=== PATIENT | male | born 1940 | race Caucasian/White ===

== ENCOUNTER 2018-10-03 16:00 | Inpatient (IN) | payer MEDICARE, OTHER ==
[2018-10-03] VITALS (17 sets, daily range): BP systolic 100–168; BP diastolic 52–86
[~2018-10-03] VITALS: Ht 193 cm; Wt 81.2 kg
--- NOTE | 2018-10-03 15:41 | NUR ---
[facility] BAIL AGENT NOTES RECEIVED PT FROM GPS,OBTUNDED.RESPONSIVE ONLY TO TACTILE STIMULI.BOTH EYES CLOSED ALL THE TIME.RESPIRATIONS NON LABORED IN ROOM AIR.O2 SAT 93%.WITH MOUTH OPEN.OCCASIONAL REPRODUCTIVE COUGH WITH CONGESTION NOTED.THE CHARGE NURSE TOLD ME TO TRANSFER THE PT TO [address] [place] [id number].QUESTIONED THE CHARGE NURSE FOR THE REASON OF THE TRANSFER,PER CHARGE NURSE WAS TOLD BY THE SLOT MACHINE KEY PERSON TO TRANSFER THE PT TO [facility] SOON POSSIBLE FOR CONTINUITY OF CARE.V/S BP 102/80 HR 60 RR 20 T99 O2 SAT 93% IN ROOM AIR.
--- NOTE | 2018-10-03 15:55 | NUR ---
MOVED PT TO [facility] 306-1 VIA BED.
[~2018-10-03 16:00] MED LIST: FINA5TAB11 PO; QUET25TA PO; VALS160T2 PO
--- NOTE | 2018-10-03 16:00 | NUR ---
PT TRANSFERRED FROM [facility] TO [facility] , FROM [facility] TO 3W -TELE. RECEIVED REPORT FROM DUANE Puente. PT RESPONDS TO DEEP PAIN,RIGID. PT ON O2 VIA NC 2L SATURATING 97%. BP 108/54. PT PLACED ON MONITOR SR HR 54-56. INSERTED IV LINE ON LFA #22. FAMILY AT THE BEDSIDE. BELONGINGS LIST REVIEWED. PT DENTURES (UPPER/ LOWER) AND GLASSES RETURNED TO FAMILY. WILL F/U WITH MARLYN N.P. ORDERS.
--- NOTE | 2018-10-03 16:00 | NUR ---
PLACED PT COMFORTABLY IN BED WITH O2 AT 2L/MIN VIA N/C.NO SOB NOTED.PT MOVES HIS LEFT ARM OCCASIONALLY BUT HIS EYES REMAINS CLOSED.PT MADE ATTEMPTS OF PULLING OUT HIS O2 CANNULA SEVERAL TIMES INSPITE OF EXPLAINING THE IMPORTANCE OF HAVING OXYGEN ON.SET UP SUCTION MACHINE AT BEDSIDE.REPORT GIVEN TO 3 CONSTANTINE RN.
--- NOTE | 2018-10-03 16:20 | NUR ---
PT'S DAUGHTER,WASHINGTON RIVERA CALLED.SPOKE TO WASHINGTON AND UPDATED HER ON PT'S CONDITION.
[2018-10-03] MEDS ORDERED: ONDANSETRON HCL/PF 4 MG/2 ML VIAL IVP PRN (17:00)
[2018-10-03] MEDS ORDERED: Z GUARD REMEDY 2 OZ OINT TP PRN (17:00)
[2018-10-03] MEDS ORDERED: HYDROCODONE/APAP 5/325MG 1 EACH TABLET PO PRN (17:00)
[2018-10-03] MEDS ORDERED: IV NS 0.9% 1,000 ML IV PRN (17:00)
[2018-10-03 17:27] LABS: BASOPHILS % (AUTO) 0.1 % (0.0-2.0); HEMATOCRIT 37 % (39-51); HEMOGLOBIN 12.6 g/dL (13.5-17.5); LYMPHOCYTES # (AUTO) 0.6 /CMM (0.8-4.8); LYMPHOCYTES % (AUTO) 5.8 % (20.0-44.0); MEAN CORPUSCULAR HGB CONC 34 g/dl (31.0-36.0); MEAN CORPUSCULAR VOLUME 90 fL (80-96); MONOCYTES # (AUTO) 0.9 /CMM (0.1-1.30); MONOCYTES % (AUTO) 8.7 % (2.0-12.0); NEUTROPHILS # (AUTO) 8.5 /CMM (1.8-8.9); NEUTROPHILS % (AUTO) 85.4 % (43.0-81.0); PLATELET COUNT (AUTO) 136 /CMM (150-450); RED BLOOD CELL COUNT(AUTO) 4.07 MIL/uL (4.5-6.0)
[2018-10-03 17:39] LABS: CALCIUM, SERUM 8.7 mg/dL (8.5-10.1); CARBON DIOXIDE 24 mmol/L (21-32); CHLORIDE 106 mmol/L (98-107); CREATININE 0.9 mg/dL (0.6-1.3); GLUCOSE 122 mg/dL (74-106); POTASSIUM 3.8 mmol/L (3.5-5.1); SODIUM SERUM 141 mmol/L (136-145); UREA NITROGEN, BLOOD 22 mg/dL (7-18)
[2018-10-03 17:52] LABS: ALANINE AMINOTRANSFERASE 46 U/L (12-78); ALBUMIN 3.2 g/dL (3.4-5.0); ALKALINE PHOSPHATASE 71 U/L (46-116); ASPARTATE AMINOTRANSFERASE 99 U/L (15-37); B-TYPE NATRIURETIC PEPTIDE 1472 PG/ML (0-125); MAGNESIUM 2.2 mg/dL (1.8-2.4); PHOSPHORUS 2.7 mg/dL (2.5-4.9); TOTAL PROTEIN, SERUM 6.4 g/dL (6.4-8.2)
--- NOTE | 2018-10-03 18:00 | NUR ---
RECEIVED A CALL FROM LAB . TROPONIN LEVEL IS [phone]. MADE AWARE Sarina CLINE
--- NOTE | 2018-10-03 18:45 | NUR ---
PT RETURNED FROM CT HEAD. MARLYN Branch AT THE BED SIDE. Addendum: 10/03/18 at 1954 by SIVAKUMAR ARGUETA RN MARLYN Lozano AWARE OF CT HEAD RESULTS
--- NOTE | 2018-10-03 18:50 | NUR ---
Marta CLINE MADE AWARE CARGO SERVICE SUPERVISOR AND NEUROLOGIST
[2018-10-03 18:58] LABS: ABG BASE EXCESS 1.5 mmol/L; ABG OXYGEN SATURATION 97.5 % (92.0-98.5); ABG PCO2 38.2 mmHg (35.0-45.0); ABG PH 7.442 (7.350-7.450); ABG PO2 111.7 mmHg (75.0-100.0); AaDO2 71.8 mmHg; COHb 0.3 % (0.5-1.5); MetHb 0.6 % (0.0-1.5); O2Hb 96.6 % (94.0-97.0); SITE, ABG Right Radial; VENT MODE, BG NC 3LPM
--- NOTE | 2018-10-03 19:05 | NUR ---
TRANSFERRED PT TO ICU DUE TO CT HEAD RESULT (HEMORRHAGIC STROKE ). REPORT GIVEN TO TAYLOR BOBO
--- NOTE | 2018-10-03 19:10 | NUR ---
ICU/UNSTACKER RECEIVED FROM MED/SURG NURSE. PT PLACED ON ICU MONITOR. DANIEL MARLYN HERE TO SEE PT. SEE NURSING FLOWSHEET FOR ASSESSMENT AND WOUND ASSESSMENT. PT WAS TURNED AND REPOSITIONED FOR COMFORT AND CARE. WILL CONTINUE TO MONITOR THIS PT.
--- NOTE | 2018-10-03 19:20 | NUR ---
ICU/SUPERVISOR FUSING ROOM DANIEL CLINE MADE AWARE OF THE HEAD CT WHICH SHOWS 290ML HEMATOMA ALONG WITH MIDBRAIN SHIFT. FAMILY CALLED IN TO TALK TO THEM ABOUT PLAN OF CARE.
[2018-10-03] MEDS: IV NS 0.9% 1,000 ML IV PRN (19:51)
[2018-10-03 19:55] LABS: CHOLESTEROL 164 mg/dL (<200); HDL CHOLESTEROL 43 mg/dL (40-60); LDL 113 mg/dL (0-99); THYROID STIMULATING HORMONE 1.523 uIU/mL (0.358-3.74); TRIGLYCERIDES 75 mg/dL (30-150)
[2018-10-03] MEDS ORDERED: CEFTRIAXONE 1 G in IV D5W 50 ML IV SCH (20:00)
--- NOTE | 2018-10-03 20:10 | NUR ---
ICU/TURBINE ASSEMBLER NEUROLOGIST CALLED TO TALK ABOUT HEAD CT RESULTS AND POTENTIAL PLAN OF CARE FOR THIS.
[2018-10-03] MEDS: METRONIDAZOLE 500MG/ NS 100ML 500 MG in PREMIX 1 EA IV SCH (20:30)
--- NOTE | 2018-10-03 20:40 | NUR ---
ICU/GANG RIDER PT WAS DEEP SUCTIONED, THICK YELLOW SECRETIONS WERE FOUND. PT TOLERATED THIS WELL, REMAINS ON 2 LITERS N/C. WILL CONTINUE TO MONITOR THIS PT.
--- NOTE | 2018-10-03 22:00 | NUR ---
ICU/ELECTROPHYSIOLOGY TECHNOLOGIST PT'S CAME TO THE DECISION TO MAKE PT A DNR/DNI. DNP PLACED IN THE COMPUTER.
--- NOTE | 2018-10-03 22:50 | NUR ---
ICU/MILLINERY TEACHER PT WAS DEEP SUCTIONED, THICK YELLOW SECRETIONS CONTINUE TO BE FOUND. PT TOLERATED THIS WELL, REMAINS ON 2 LITERS N/C. WILL CONTINUE TO MONITOR THIS PT.
[2018-10-04] VITALS (45 sets, daily range): BP systolic 101–170; BP diastolic 52–94
--- NOTE | 2018-10-04 01:20 | NUR ---
ICU/DIRECTOR OF EMAIL MARKETING PT'S FAMILY GONE HOME FOR THE EVENING.
--- NOTE | 2018-10-04 02:20 | NUR ---
ICU/LEAD COOK PT WAS DEEP SUCTIONED, THICK YELLOW SECRETIONS CONTINUE TO BE FOUND. PT TOLERATED THIS WELL, REMAINS ON 2 LITERS N/C. WILL CONTINUE TO MONITOR THIS PT.
--- NOTE | 2018-10-04 03:10 | NUR ---
ICU/OIL FIELD RIG BUILDER PT WAS GIVEN AM CARE ALONG WITH ORAL CARE. PT TOLERATED THIS WELL, REMAINS ON CURRENT OXYGEN SETTINGS, WITH SATURATION AT 98%. PT WAS TURNED AND REPOSITIONED FOR COMFORT AND CARE. NO ACUTE DISTRESS SEEN AT THIS TIME. PT APPEARS COMFORTABLE. WILL CONTINUE TO MONITOR THIS PT.
[2018-10-04] MEDS: METRONIDAZOLE 500MG/ NS 100ML 500 MG in PREMIX 1 EA IV SCH (03:47)
--- NOTE | 2018-10-04 04:55 | NUR ---
ICU/FELT PULLER AM LABS WERE DRAWN ALONG WITH CHEST XRAY, AWAIT FOR ANY ABNORMAL RESULTS.
[2018-10-04 05:06] LABS: CALCIUM, SERUM 8.2 mg/dL (8.5-10.1); CARBON DIOXIDE 23 mmol/L (21-32); CHLORIDE 106 mmol/L (98-107); CREATININE 0.9 mg/dL (0.6-1.3); GLUCOSE 115 mg/dL (74-106); PHOSPHORUS 2.7 mg/dL (2.5-4.9); POTASSIUM 3.7 mmol/L (3.5-5.1); SODIUM SERUM 141 mmol/L (136-145); UREA NITROGEN, BLOOD 24 mg/dL (7-18)
[2018-10-04 05:42] LABS: BASOPHILS % (AUTO) 0.1 % (0.0-2.0); HEMATOCRIT 38 % (39-51); HEMOGLOBIN 12.7 g/dL (13.5-17.5); LYMPHOCYTES # (AUTO) 0.7 /CMM (0.8-4.8); LYMPHOCYTES % (AUTO) 7.3 % (20.0-44.0); MEAN CORPUSCULAR HGB CONC 34 g/dl (31.0-36.0); MEAN CORPUSCULAR VOLUME 91 fL (80-96); MONOCYTES # (AUTO) 0.9 /CMM (0.1-1.30); MONOCYTES % (AUTO) 9.3 % (2.0-12.0); NEUTROPHILS # (AUTO) 7.7 /CMM (1.8-8.9); NEUTROPHILS % (AUTO) 83.3 % (43.0-81.0); PLATELET COUNT (AUTO) 138 /CMM (150-450); RED BLOOD CELL COUNT(AUTO) 4.14 MIL/uL (4.5-6.0); WHITE BLOOD COUNT (AUTO) 9.3 K/uL (4.3-11.0)
--- NOTE | 2018-10-04 07:12 | NUR ---
RN INITIAL NOTES: Rec'd pt on bed, not in any distress though noted productive cough unable to expectorate. On NC at 2lpm, sating 96%. On telemonitor SB 58bpm. Pt is responsive w/ painful stimulus. Has LFA G20, SL, flushing well, no s/sx of infection/infiltration, on NS x 75 cc/hr. Deep suctioning done, able to suctioned thick secretions via oropharyngeal. Provided comfort & safety measures. Bed kept low & in locked pos. Call light placed w/in reach. Will continue to monitor & attend pt needs.
--- NOTE | 2018-10-04 08:30 | NUR ---
RN was able to talk to the and agreeable w/ condom catheter. Pt is incontinent & noted redness on the sacral area.
--- NOTE | 2018-10-04 09:00 | NUR ---
Pt seen & examined by Dr. Ferguson. was able to talk w/ the .
[2018-10-04] MEDS: PANTOPRAZOLE 40 MG VIAL IV SCH (09:14)
[2018-10-04] MEDS: IV NS 0.9% 1,000 ML IV PRN (11:28)
--- NOTE | 2018-10-04 14:00 | NUR ---
Karuna requested if she can have pt's wallet & phone. RN got valuables from nursing office c/o Kandis. Wallet & flip phone returned to the at bedside. checked & no issues brought up.
--- NOTE | 2018-10-04 14:44 | NUR ---
Jero May NP may place DVT pumps.
--- NOTE | 2018-10-04 15:00 | NUR ---
Spoke w/ pt's Karuna at bedside re: DCP, stated that she wanted the pt to be transferred stacie to [facility] in [place] under DNR/DNI status & once there will discuss the option of Hospice care. Lalo REYNOLDS made aware.
--- NOTE | 2018-10-04 17:49 | NUR ---
Pt seen & examined by RODOLFO May.
--- NOTE | 2018-10-04 18:33 | NUR ---
RN CLOSING NOTES: No acute changes noted w/in shift. Pt tolerated NC at 2lpm, sating 96%. Remains SB/SR on telemonitor. Pt is responsive w/ painful stimulus, opens eyes occasionally. LFA G20, PL, kept patent & intact w/ no s/sx of infection/infiltration, on NS x 75 cc/hr. Kept well rested. Needs attended. Bed kept low & in locked pos. Call light placed w/in reach. Will endorse to PM RN for RADHA.
--- NOTE | 2018-10-04 20:35 | NUR ---
I RECEIVED A CALL FROM LUIS A PSYCH CHARGE NURSE, SHE SAID THAT DR LANDAVERDE SAID TO D/C [id number]
--- NOTE | 2018-10-04 22:00 | NUR ---
right forearm 20g iv started, good blood return
[2018-10-05] VITALS (47 sets, daily range): BP systolic 86–154; BP diastolic 39–97
[2018-10-05] MEDS: IV NS 0.9% 1,000 ML IV PRN (00:48)
--- NOTE | 2018-10-05 05:56 | NUR ---
HAND BINDER CUTTER - NOTES - Received pt in bed, not in any distress though noted productive cough unable to expectorate. On NC at 2lpm, sating 96%. On telemonitor SR. Pt is responsive w/ painful stimulus. Has LFA G20, SL, flushing well, no s/sx of infection/infiltration, on NS x 75 cc/hr. Provided comfort & safety measures. Bed kept low & in locked pos. Call light placed w/in reach. Will continue to monitor & attend pt needs.
--- NOTE | 2018-10-05 09:00 | NUR ---
restraints education provided to RENEWAL ORDER PER ROSALINDA CLINE DNP, MITTEN ON UPPER LEFT EXTREMITY
[2018-10-05 09:40] LABS: APPEARANCE,URINE TURBID (CLEAR); BILIRUBIN,URINE 1+ (NEGATIVE); BLOOD, URINE TRACE Ery/uL (NEGATIVE); KETONES,URINE 2+ (NEGATIVE); LEUKOCYTE ESTERASE ,URINE NEGATIVE (NEGATIVE); NITRITE, URINE NEGATIVE (NEGATIVE); PH,URINE 5.5 (5.0-8.0); PROTEIN,URINE NEGATIVE (NEGATIVE); UGLUCOSE NEGATIVE (NEGATIVE); UROBILINOGEN,URINE 0.2 EU/dL (0.2)
[2018-10-05] MEDS: PANTOPRAZOLE 40 MG VIAL IV SCH (09:52)
[2018-10-05 10:04] LABS: COLOR,URINE DARK YELLOW (YELLOW)
[2018-10-05 10:08] LABS: BACTERIA,URINE FEW /HPF (None Seen); RBC,URINE 0-2 /HPF (0-2); SQUAMOUS EPITHELIAL CELL,UR RARE /HPF (None Seen); WBC,URINE 0-2 /HPF (0-3)
--- NOTE | 2018-10-05 10:41 | NUR ---
Sw has spoken with case management regarding consult received for pt. CM will process hospice consult.
--- NOTE | 2018-10-05 12:01 | NUR ---
PER ROSALINDA CLINE DNP CHANGE IV FLUIDS TO D5 NS AT 75 ML/HOUR
[2018-10-05] MEDS: IV D5/ 0.9% NACL 1,000 ML IV PRN (12:52)
[2018-10-05] MEDS: LEVETIRACETAM (500MG) 500 MG in IV NS 0.9% 100 ML IV SCH ×2 (14:17→20:20)
--- NOTE | 2018-10-05 17:57 | NUR ---
PER ROSALINDA CLINE DNP, FLAGYL 500 MG Q8 HOURS IV ROCEPHIN 1 GRAM Q 24 HOURS
[2018-10-05] MEDS: ACETAMINOPHEN 650 MG/SUPP.RECT RC PRN (19:06)
[2018-10-05] MEDS: CEFTRIAXONE 1 G in IV D5W 50 ML IV SCH (19:39)
--- NOTE | 2018-10-05 19:53 | NUR ---
ROCEPHIN INFUSING NOW. RECEIVED FLAGYL FROM PHARMACY NOW. ENDORSED TO WILLIAM VAZQUEZ CONDOM CATHETER NOTED TO BE LEAKING DURING DAY. BRYANT CATHETER INSERTED PER STERILE TECHNIQUE FOR STRICT IS AND OS. , HOWEVER, REFUSED. BRYANT CATHETER REMOVED PER HER REQUEST FOR PATIENT'S COMFORT AGREEING TO PLAN OF CARE NOW OF PATIENT BEING NPO WITH IV D5NS AT 75 ML/HOUR PATIENT REMAINING SINUS RHYTHM, SINUS BRADYCARDIA ON TELE MONITOR PERIPHERAL IV LINES PATENT AND INTACT BP MONITORED THROUGHOUT SHIFT PER NEURO GOAL
--- NOTE | 2018-10-05 20:00 | NUR ---
RN NOTE RECEIVED PATIENT FROM LARISA VAZQUEZ, IS BY BEDSIDE, PATIENT IS NON-VERBAL, OBTUNDED, PATIENT IS ON 5L/MIN VIA SIMPLE MASK, SPO2 94%, CALL LIGHT IS WITHIN REACH, ALL SAFETY MEASURES TAKEN Addendum: 10/05/18 at 2144 by ALFREDA MORGAN RN FEBRILE 100.7F, NURSE ADMINISTERED TYLENOL SUPP. EARLIER, WILL CONTINUE TO MONITOR
[2018-10-05] MEDS: METRONIDAZOLE 500MG/ NS 100ML 500 MG in PREMIX 1 EA IV SCH (20:09)
--- NOTE | 2018-10-05 20:30 | NUR ---
RN NOTE RECHECKED TEMPERATURE, TEMPERATURE OF 97.4F ORALLY NOTED
--- NOTE | 2018-10-05 21:11 | NUR ---
RN NOTE PATIENT HAS MITTEN ON THE LEFT HAND ONLY, HOWEVER STILL ABLE TO REMOVE SIMPLE MASK, NOTIFIED YU CUFF PRESSER, RECEIVED AN ORDER FOR LEFT WRIST RESTRAINT, CHARGE NURSE LILLY IS AWARE
[2018-10-06] VITALS (44 sets, daily range): BP systolic 93–159; BP diastolic 44–94
[2018-10-06] MEDS: ACETAMINOPHEN 650 MG/SUPP.RECT RC PRN (00:12)
--- NOTE | 2018-10-06 01:02 | NUR ---
PT ON SM 5L. NT SX'D PT, OBTAINED LARGE AMT OF THICK YELLOW/TINGED SECRETIONS.
[2018-10-06] MEDS: METRONIDAZOLE 500MG/ NS 100ML 500 MG in PREMIX 1 EA IV SCH ×3 (01:50→18:10)
[2018-10-06] MEDS: IV D5/ 0.9% NACL 1,000 ML IV PRN ×2 (03:52→16:58)
--- NOTE | 2018-10-06 07:00 | NUR ---
RN NOTE ALL SAFETY MEASURES TAKEN, TURNED AND REPOSITIONED Q 2 HOURS, OFFLOADED NEEDED, SUCTIONED NEEDED X 3-YELLOW/TINGED SECRETIONS, VITAL SIGNS STABLE, WILL ENDORSE TO AM SHIFT TO CONTINUE CARE
[2018-10-06] MEDS: PANTOPRAZOLE 40 MG VIAL IV SCH (10:00)
[2018-10-06] MEDS: LEVETIRACETAM (500MG) 500 MG in IV NS 0.9% 100 ML IV SCH ×2 (10:01→21:23)
[2018-10-06] MEDS: CEFTRIAXONE 1 G in IV D5W 50 ML IV SCH (17:04)
--- NOTE | 2018-10-06 19:50 | NUR ---
RN NOTES RECEIVED PT WITH O2 5LPM VIA MASK. SATURATION 97%. MOANING BUT NOT FOLLOWING COMMAND. NO ACUTE RESPIRATORY DISTRESS. DEEPLY SUCTIONED WITH THICK BLOODY SECRETION. SR HR 76 ON TELE MONITOR. BILATERAL UPPER BREATH SOUND RONCHI. PT HAS IV SITE ON LEFT FOREARM G20 AND RIGHT FOREARM G 20 WITH NS @ 75 ML/HR INTACT AND PATENT. BP CLOSELY MONITOR. CONTINUE TO MONITOR SIGNIFICANT WEAKNESSES. KEPT PT CLEAN AND COMFORTABLE IN BED. OFFLOADED EXT WITH PILLOWS. LEFT WRIST RESTRAINT FOR SAFETY. WILL CONTINUE TO MONITOR.
[2018-10-07] VITALS (35 sets, daily range): BP systolic 106–158; BP diastolic 51–98
--- NOTE | 2018-10-07 | NUR ---
SMOKE JUMPER SUPERVISOR NOTES PATIENT NT SUCTIONED BY RT PINEDO, NOTED WITH THICK, RICKS COLORED, BLOOD TINGED SECRETIONS. PATIENT TOLERATED WELL, WILL CONTINUE CLOSE MONITORING
[2018-10-07] MEDS: METRONIDAZOLE 500MG/ NS 100ML 500 MG in PREMIX 1 EA IV SCH (01:43)
--- NOTE | 2018-10-07 04:31 | NUR ---
NT SX'D THE PT AND OBTAINED LARGE AMT OF THICK RICKS SECRETIONS. RN NATASHA AT BEDSIDE.
--- NOTE | 2018-10-07 07:45 | NUR ---
[facility]ARE RN NOTE: RECEIVED PATIENT IN BED, ASLEEP AND APHASIC. RESPIRATION EVEN AND UNLABORED WITH O2 5.0 L/MIN VIA FACE MASK SATURATING 95%. HOB ELEVATED AT 35 DEGREE. NPO STATUS EXCEPT IV MEDS. (L) FOREARM IV SITE INTACT AND PATENT INFUSING D5NS @75ML/HR. PATIENT ON (L) SOFT WRIST RESTRAINT DUE TO PATIENT TRYING TO PULL LINES. BED ALARMED AND LOCKED AT ALL TIMES. CALL LIGHT WITHIN REACH. NEEDS ANTICIPATED.
--- NOTE | 2018-10-07 08:07 | NUR ---
WOUND CARE CONSULT: PT PRESENTS WITH VERY BONY SACRAL AREA WITH BLANCHABLE REDNESS, PRESENT ON ADMISSION. RECOMMENDATIONS MADE FOR SKIN PROTECTION AND CARE. DISCUSSED WITH NURSING STAFF. PT IS INCONTINENT AND IMMOBILE, NPO WITH CURRENT DIGNA SCORE OF 7. FIRST STEP LOW AIRLOSS MATTRESS ORDERED. WILL SEE PRN. IN AGREEMENT WITH PLAN OF CARE.
[2018-10-07] MEDS: PANTOPRAZOLE 40 MG VIAL IV SCH (09:44)
[2018-10-07] MEDS: IV D5/ 0.9% NACL 1,000 ML IV PRN (10:07)
[2018-10-07] MEDS: LEVETIRACETAM (500MG) 500 MG in IV NS 0.9% 100 ML IV SCH ×2 (11:17→20:30)
[2018-10-07] MEDS: CEFTRIAXONE 1 G in IV D5W 50 ML IV SCH (17:28)
--- NOTE | 2018-10-07 18:00 | NUR ---
[facility]ARE RN NOTE: PLACED A CONDOM CATHETER ON THE PATIENT TO PREVENT HIM FROM SOAKING ON HIS URINE. , SHAUN PRESENT AT THE BEDSIDE AND AGREED TO IT.
--- NOTE | 2018-10-07 18:15 | NUR ---
[facility] RN NOTE: PER CHARGE NURSE BRITTANY, DR. SEE SAID NO NEED TO DOWNGRADE THE PATIENT TO MS AT THIS TIME.
--- NOTE | 2018-10-07 19:13 | NUR ---
[facility] RN NOTE: PATIENT ON STABLE CONDITION AND REPORT WAS GIVEN TO PM SHIFT NURSE FOR CONTINUITY OF CARE.
--- NOTE | 2018-10-07 19:30 | NUR ---
PRETZEL COOKER RCD PT W/DX AMS; PT IS OBTUNDED. LEFT WRIST RESTRAINT IN PLACE TO PREVENT PULLING LINES AND REMOVING MASK. SINUS MYRA ON MONITOR. SACRAL REDNESS NOTED. 5 L SIMPLE MASK.
--- NOTE | 2018-10-07 21:30 | NUR ---
ROOFING SUBCONTRACTOR SON AT BEDSIDE. UPDATED WITH PLAN OF CARE.
[2018-10-08] VITALS (24 sets, daily range): BP systolic 95–133; BP diastolic 39–74
[2018-10-08] MEDS: IV D5/ 0.9% NACL 1,000 ML IV PRN (01:32)
--- NOTE | 2018-10-08 04:00 | NUR ---
STRAP CUTTER RENDERED COMPLETE BED BATH AND ORAL CARE. FREQUENT SUCTIONING PROVIDED TO PT. TOLERATED WELL.
--- NOTE | 2018-10-08 06:00 | NUR ---
METAL STAMPER LEFT WRIST RESTRAINT REMOVED. CONTINUE MONITORING PT.
--- NOTE | 2018-10-08 07:30 | NUR ---
PANCAKE PROFESSIONAL NOTE PATIENT IN BED OBTUNDED, NOT RESPONSE TO VERBAL OT TACITLY STIMULI , ON 5L SIMPLE MASK , SAT 95% . ON TELEMONITOR SR 45 , WITH CONDOM V CATH IN PLACE WITH YELLOW COLOR URINE , NOTED , ON NPO STATUS, LT FA HL INTACT .ON IVF ORDERED , ON KCI MATRES FOR SKIN MANAGEMENT , ON DNR STATUS , BED IN LOWEST AND LOCKED POSITION , WILL CONT TO MONITOR CLOSELY
[2018-10-08] MEDS: LEVETIRACETAM (500MG) 500 MG in IV NS 0.9% 100 ML IV SCH (08:37)
[2018-10-08] MEDS: PANTOPRAZOLE 40 MG VIAL IV SCH (08:38)
--- NOTE | 2018-10-08 10:00 | NUR ---
HAND TRIMMER NOTE DR SEE AT BEDSIDE SPOKE WITH FAMILY ABOUT HOSPICE CARE/WILL F\U
--- NOTE | 2018-10-08 12:30 | NUR ---
ELEVATOR CONSTRUCTOR SUPERVISOR NOTE SPOKE WITH JOSE A SUPERINTENDENT AUTOMOTIVE AWARE OF HOSPICE EVAL, STSTED THAT HOSPICE NURSE WILL COME SOON
--- NOTE | 2018-10-08 13:28 | NUR ---
INSTRUMENT SHOP SUPERVISOR NOTE YONATAN RN SEAMLESS TUBE DRAWER NEUROLOGIST AT BEDSIDE
--- NOTE | 2018-10-08 14:05 | NUR ---
DROP CREW LABORER NOTE HOSPICE NURSE AT BEDSIDE SPEAKING WITH FAMILY
--- NOTE | 2018-10-08 15:50 | NUR ---
SUPERVISOR FINISHING DEPARTMENT NOTE HOSPICE NURSE AT BEDSIDE GAVE NEW ORDERS, FAXED TO PHARMACY
--- NOTE | 2018-10-08 16:37 | NUR ---
MACHINE BENDER NOTE CALLED ADMISSION ,THEY WILL DO NEW ACCOUNT FOR PATIENT ,PATIENT WILL BE ADMITTED UNDER [facility]IC[facility] HOSPICE , SPOKE WITH PHARMACY SADIQ WILL PLACE ORDER TILL NEW ACCOUNT WILL BE READY
--- NOTE | 2018-10-08 17:00 | NUR ---
DEICER REPAIRER NOTE DISCHARGE PATINT TO DEDICATED HOSPICE CARE , ALS HOME MEDS GIVEN TO ,
--- NOTE | 2018-10-08 17:18 | NUR ---
RESOURCE SPECIALIST NOTE TRANSFERRED TO IS FLOOR REPORT GIVEN TO AURA VAZQUEZ , NOTIFIED THAT PATIENT WILL BE ADMITTED UNDER HOSPICE CARE Addendum: 10/08/18 at 1721 by SHELLI MENDIOLA RN TRANSFERRED TO ROOM 109 BY BED WITH STABLE CONDITION , AT BEDSIDE
== END 2018-10-08 17:23 | disposition hospice, home (50) | DRG 64 ==
LOC: TELE 16:00 → ICU 19:07
PROVIDERS: ADMIT Hospitalist; ATTEND Internal Medicine
DX: I61.1 Nontraumatic intracerebral hemorrhage in hemisphere, cortical (principal); I21.4 Non-ST elevation (NSTEMI) myocardial infarction; J69.0 Pneumonitis due to inhalation of food and vomit; G93.6 Cerebral edema; J15.6 Pneumonia due to other Gram-negative bacteria; D59.1 Other autoimmune hemolytic anemias; G81.91 Hemiplegia, unspecified affecting right dominant side; R47.01 Aphasia; Z87.891 Personal history of nicotine dependence; Z86.73 Personal history of transient ischemic attack (TIA), and cerebral infarction without residual deficits; Z66 Do not resuscitate; N40.0 Benign prostatic hyperplasia without lower urinary tract symptoms; M81.0 Age-related osteoporosis without current pathological fracture; I73.00 Raynaud's syndrome without gangrene; I34.1 Nonrheumatic mitral (valve) prolapse; D47.2 Monoclonal gammopathy; F03.90 Unspecified dementia, unspecified severity, without behavioral disturbance, psychotic disturbance, mood disturbance, and anxiety; F41.9 Anxiety disorder, unspecified; R00.1 Bradycardia, unspecified; I11.0 Hypertensive heart disease with heart failure; I50.9 Heart failure, unspecified; Z85.72 Personal history of non-Hodgkin lymphomas; Z51.5 Encounter for palliative care; D69.6 Thrombocytopenia, unspecified
CPT/HCPCS: 31720; 36415; 36600; 70450-TC; 71045-TC; 80048-TC; 80053-TC; 80061-TC; 81000-TC; 82803-TC; 82962-TC; 83605-TC; 83735-TC; 83880; 84100-TC; 84443-TC; 84484-TC; 85025-TC; 85730-TC; 87040-TC; 87081-TC; 87086-TC; 93307-TC; 94760-TC; 94799-TC; A4216; A4349; A4624; C9113; G0378; J0696; J1953; J3490; J7030; J7042; J7060

== ENCOUNTER 2018-10-08 17:27 | Inpatient (IN) | payer OTHER ==
[~2018-10-08] VITALS: Ht 193 cm; Wt 81.2 kg
--- NOTE | 2018-10-08 16:52 | NUR ---
STONEMASON SUPERVISOR ADMIT NOTE RECEIVED REPORT FROM ICU NURSE-TAYLOR MARQUES. PATIENT IS CURRENTLY IN ROOM 259 AND WILL BE TRANSFERRED TO [facility] TO ROOM 109-1. PATIENT HAD COME TO ER FOR HYPOTENSION/AMS AND 5150 HOLD FOR AGGRESSION. DURING STAY PATIENT WAS DIAGNOSED WITH HEMORRHAGIC STROKE. PATIENT IS NOW DNR/DNI WITH POLST OBTAINED AND IN CHART HISTORY OF MITRAL VALVE REPLACEMENT, HEMORRHAGIC STROKE, DEMENTIA AND ANXIETY. ALLERGY TO IODINE AND IODINE CONTAINING PRODUCTS, NOTED. PATIETN IS OBTUNDED, NON-VERBAL. ON 5L/MIN VIA SIMPLE MASK NO SOB OR DISTRESS NOTED. NO FACIAL GRIMACING NOTED FOR PAIN. CONDOM CATHETER IN PLACE-220 OUTPUT PRIOR TO TRANSFER, WILL MONITOR OUTPUT WITH EMERY COLOR URINE NOTED. SACRAL REDNESS-APPLY Z GUARDS. HAS TWO IV'S AT THIS TIME ONE ON LEFT FOREARM 20G & RIGHT FOREARM 20G INTACT AND PATENT. NO IV FLUIDS AT THIS TIME, DISCONTINUED BY HOSPICE NURSE/MD. PER TAYLOR MARQUES PATIENT HAS A LOT OF SECRETIONS, FREQUENT SUCTIONING NEEDED ALSO HAS ATROPINE AVAILABLE IF SUCTIONING NOT EFFECTIVE FOR SECRETIONS. HOSPICE ORDERS NOTED IN CHART AND CARRIED OUT BY TAYLOR MARQUES & FAXED TO PHARMACY. ORDER TO DISCONTINUE ALL IV HYDRATION, ANTIBIOTICS AND MEDICATIONS BUT RESUME ONLY KEPPRA IV AND PROTONIX IV. HOME MEDICATION RETURNED TO SHAUN () TO TAKE HOME. WILL CONTINUE TO MONITOR CARE AND PROVIDE COMFORT
[2018-10-08] MEDS ORDERED: MORPHINE SULFATE SOLN CONCENTRATED 20 MG/ML SL PRN (18:00)
--- NOTE | 2018-10-08 18:04 | NUR ---
SHAUN- CELL PHONE NUMBER
[2018-10-08 18:24] VITALS: BP 134/57
--- NOTE | 2018-10-08 18:40 | NUR ---
BETTING AGENCY MANAGER CLOSING NOTE PATIENT LAYING IN BED IN COMFORTABLE POSITION AT THIS TIME. SAFETY MEASURES IMPLEMENTED. COMFORT MEASURES IN PLACE. ORDER FOR KEPPRA AND PROTONIX NOTED AND CARRIED OUT. AT BEDSIDE. ON 5L/MIN VIA SIMPLE MASK. WILL ENDORSE TO ENERGY SALES BROKER NURSE FOR RADHA AND CONTINUE COMFORT CARE
--- NOTE | 2018-10-08 19:30 | NUR ---
RN NOTES: RECEIVED PT OBTUNDED, ON 7L 02 VIA SIMPLE MASK. NO ACUTE DISTRESS, NO EVIDENCE OF DISCOMFORT. IV SITE INTACT WT NO S/S OF INFILTRATION. HOB AT 35 DEGREES. SAFETY PRECAUTION NOTED. COMFORT MEASURES PROVIDED. WILL CONTINUE TO MONITOR.
[2018-10-08 20:00] VITALS: BP 144/65
[2018-10-08] MEDS: LEVETIRACETAM (500MG) 500 MG in IV NS 0.9% 100 ML IV SCH (20:54)
--- NOTE | 2018-10-08 21:40 | NUR ---
RN NOTES: ENDORSED TO TAYLOR GUNN FOR CONTINUITY OF CARE. NO ADVERSE CHANGES NOTED.
--- NOTE | 2018-10-09 06:53 | NUR ---
RIVETER HAND NOTES PT KEPT COMFORTABLE , NO RESPIRATORY DISTRESS NOTED. WILL ENDORSE TO THE AM NURSE FOR CONTINUITY OF CARE.
[2018-10-09 08:00] VITALS: BP 104/62
--- NOTE | 2018-10-09 08:00 | NUR ---
RN NOTES; PATIENT RECEIVED ASLEEP, OBTUNDED, NON VERBAL. ON 7 LPM O2 VIA SIMPLE MASK. NO S/S OF PAIN/DISCOMFORT NOTED. IV SITE INTACT. SALINE LOCK. NPO STATUS. SAFETY MEASURES OBSERVED. CONTINUE WITH COMFORT CARE. CONTINUE TO MONITOR.
[2018-10-09] MEDS: LEVETIRACETAM (500MG) 500 MG in IV NS 0.9% 100 ML IV SCH ×2 (08:42→21:39)
[2018-10-09] MEDS: PANTOPRAZOLE 40 MG VIAL IV SCH (08:43)
[2018-10-09] MEDS: ATROPINE SULFATE OPHTH SOLN 15 ML BOTTLE SL PRN ×2 (08:43→16:23)
[2018-10-09 16:00] VITALS: BP 142/75
--- NOTE | 2018-10-09 18:33 | NUR ---
RN NOTE; NO SIGNIFICANT CHANGES NOTED DURING SHIFT. CONTINUE WITH COMFORT CARE. CONTINUE TO TURN & REPOSITION Q2H. SAFETY MEASURES OBSERVED. CONTINUE TO MONITOR. WILL ENDORSE TO PM SHIFT FOR CONTINUITY OF CARE.
[2018-10-09 20:00] VITALS: BP 151/73
[2018-10-09] MEDS: ACETAMINOPHEN 650 MG/SUPP.RECT RC PRN (22:21)
--- NOTE | 2018-10-10 07:10 | NUR ---
RN OPENING NOTES PATIENT RECEIVED IN BED, OBTUNDED, NON VERBAL. ON 7 LPM O2 VIA SIMPLE MASK.INCREASED RESP RATE NOTED.FAMILY DONT WANT TO GIVE PRN MEDS. IV SITE INTACT. SALINE LOCK. NPO STATUS. SAFETY MEASURES OBSERVED. CONTINUE WITH COMFORT CARE. WILL CONTINUE TO MONITOR.
[2018-10-10 08:00] VITALS: BP 144/76
[2018-10-10] MEDS: LEVETIRACETAM (500MG) 500 MG in IV NS 0.9% 100 ML IV SCH ×2 (08:30→21:25)
[2018-10-10] MEDS: PANTOPRAZOLE 40 MG VIAL IV SCH (08:30)
--- NOTE | 2018-10-10 08:30 | NUR ---
RN NOTES SEEN BY ,UPDATED ABOUT PATIENT CONDITION,ADDRESSED ISSUE OF WITHHOLDING MORPHINE PER FAMILY REQUEST,BUT PATIENT NEED IT. EXPLAINED TO DAUGHTER ABOUT PRN MEDICATIONS FOR COMFORT LEVEL OF THE PATIENT .SHE AGREED TO GIVE MEDS.GOT NEW ORDERS.WILL CONTINUE TO MONITOR..
[2018-10-10] MEDS ORDERED: MORPHINE SULFATE INJ 2 MG/ML DISP.SYRIN IV PRN (09:30)
[2018-10-10] MEDS: MORPHINE SULFATE INJ 4 MG/ML DISP.SYRIN IV PRN ×2 (12:40→19:09)
[2018-10-10] MEDS: LORAZEPAM INJ 2 MG/ML VIAL IV PRN (13:36)
[2018-10-10 16:00] VITALS: BP 135/76
[2018-10-10] MEDS: ACETAMINOPHEN 650 MG/SUPP.RECT RC PRN (17:52)
--- NOTE | 2018-10-10 19:00 | NUR ---
RN NOTES PATIENT ENDORSED TO NEXT SHIFT IN STABLE CONDITION FOR CONTINUITY OF CARE. NO SIGNIFICANT CHANGES NOTED. KEPT CLEAN, DRY AND COMFORTABLE. ALL NEEDS ATTENDED. SAFETY MEASURE OBSERVED. CALL LIGHT WITH IN REACH. WILL CONT TO MONITOR.
--- NOTE | 2018-10-10 19:20 | NUR ---
RN OPENING NOTES PT RECEIVED WITH EYES CLOSED. AT BEDSIDE. MOVES TOWARDS PAINFUL STIMULI. ON 7L O2 VIA SIMPLE MASK, CONTINUOUS PULSE OX AT BEDSIDE SHOWING 96%. OBTUNDED. IV TO RFA PATENT AND INTACT. CONDOM CATHETER IN PLACE AND DRAINING TO GRAVITY. BED IN LOW/LOCKED POSITION WITH CALL LIGHT IN REACH. BILATERAL UPPER SIDE RAILS IN PLACE. HOB ELEVATED. WILL CONTINUE TO MONITOR
[2018-10-10 20:00] VITALS: BP 149/80
[2018-10-10] MEDS: ATROPINE SULFATE OPHTH SOLN 15 ML BOTTLE SL PRN (22:57)
[2018-10-11] MEDS: MORPHINE SULFATE INJ 4 MG/ML DISP.SYRIN IV PRN ×3 (00:05→15:48)
--- NOTE | 2018-10-11 00:05 | NUR ---
RN NOTES PT MOANING AND WITH RR 24. ADMINISTERED PRN MORPHINE ORDERED. WILL MONITOR FOR EFFECTIVENESS
[2018-10-11 04:00] VITALS: BP 161/79
--- NOTE | 2018-10-11 07:37 | NUR ---
RN CLOSING NOTES PT WITH EYES CLOSED. MOVES TOWARDS PAINFUL STIMULI. REMAINS ON 7L SIMPLE MASK WITH HOB ELEVATED. CONTINUOUS O2 MONITOR 95%. IV TO RFA PATENT AND INTACT. PRN DEEP SUCTIONING PROVIDED. TURNED/REPOSITIONED Q2H, HEELS OFFLOADED. CONDOM CATH IN PLACE AND DRAINING TO GRAVITY. KEPT PT COMFORTABLE WITH PRN PAIN MEDS. BED IN LOW/LOCKED POSITION WITH CALL LIGHT IN REACH AND BILATERAL UPPER SIDE RAILS IN PLACE. ENDORSED TO DAY SHIFT RN RADHA.
--- NOTE | 2018-10-11 07:43 | NUR ---
RN OPENING NOTES PATIENT RECEIVED IN BED, OBTUNDED, NON VERBAL. ON 7 LPM O2 VIA SIMPLE MASK.INCREASED RESP RATE NOTED.FAMILYRFA #20 GAUGE IV SITE INTACT. SALINE LOCK. NPO STATUS. SAFETY MEASURES OBSERVED. CONTINUE WITH COMFORT CARE. WILL CONTINUE TO MONITOR.
[2018-10-11 08:00] VITALS: BP 159/98
[2018-10-11] MEDS: LEVETIRACETAM (500MG) 500 MG in IV NS 0.9% 100 ML IV SCH ×2 (08:53→21:04)
[2018-10-11] MEDS: PANTOPRAZOLE 40 MG VIAL IV SCH (08:53)
[2018-10-11] MEDS: LORAZEPAM INJ 2 MG/ML VIAL IV PRN (12:58)
[2018-10-11 16:00] VITALS: BP 127/83
[2018-10-11] MEDS: ACETAMINOPHEN 650 MG/SUPP.RECT RC PRN (16:28)
--- NOTE | 2018-10-11 18:00 | NUR ---
FACILITIES AND GROUNDS DIRECTOR NOTES PATIENTS AT BEDSIDE FELT PATIENT WAS COMFORTABLE AND NO NEED TO REPOSITION AT THIS TIME.
--- NOTE | 2018-10-11 19:30 | NUR ---
RN OPENING NOTES PATIENT IN BED, OBTUNDED, NON VERBAL, ON 4 LPM O2 VIA NC SATURATING AT 92% AT THIS TIME, NO S/S OF PAIN OR ACUTE DISTRESS, RR 24 AT THIS TIME, HE APPEARED COMFORTABLE AT THIS TIME, FA #20 GAUGE S/L IV SITE INTACT, NPO STATUS, SAFETY MEASURES IN PLACED AT ALL TIME, NO SECRETIONS NOTED AT THIS TIME, ON COMFORT MEASURES, SON AT BEDSIDE, WILL CONTINUE TO MONITOR CLOSELY.
[2018-10-11 20:00] VITALS: BP 139/63
[2018-10-12] MEDS: MORPHINE SULFATE INJ 4 MG/ML DISP.SYRIN IV PRN ×3 (00:31→15:11)
[2018-10-12] MEDS: ATROPINE SULFATE OPHTH SOLN 15 ML BOTTLE SL PRN (05:10)
--- NOTE | 2018-10-12 06:32 | NUR ---
RENTAL CLERK CLOSING NOTE, PATIENT IN BED, OBTUNDED, NON VERBAL, ON 4 LPM O2 VIA NC SATURATING AT >93% AT THIS TIME, NO S/S OF PAIN OR ACUTE DISTRESS, RR 20 AT THIS TIME, HE APPEARED COMFORTABLE AT THIS TIME, MORPHINE ADMINISTERED 2X DURING THE NIGHT, AND TROPINE FOR INCREASED SECRETIONS, NO ACUTE DISTRESS NOTED, FA #20 GAUGE S/L IV SITE INTACT, NPO STATUS, SAFETY MEASURES IN PLACED AT ALL TIME, NO SECRETIONS NOTED AT THIS TIME, ON COMFORT MEASURES, DRY AND CLEAN AND WELL REPOSITIONED, WILL ENDORSE CONTINUITY OF CARE TO ONCOMING NURSE.
--- NOTE | 2018-10-12 07:30 | NUR ---
RN OPENING NOTES RECEIVED PATIENT WITH EYES CLOSED. DAUGHTER AT BEDSIDE. MOVES TOWARDS PAINFUL STIMULI. ON 5L O2 VIA NC, O2SAT 92%. OBTUNDED. IV TO RFA PATENT AND INTACT. CONDOM CATHETER IN PLACE AND DRAINING TO GRAVITY. BED IN LOW/LOCKED POSITION WITH CALL LIGHT IN REACH. BILATERAL UPPER SIDE RAILS IN PLACE. HOB ELEVATED. WILL CONTINUE TO MONITOR ACCORDINGLY
[2018-10-12 08:00] VITALS: BP 138/76
[2018-10-12] MEDS: LEVETIRACETAM (500MG) 500 MG in IV NS 0.9% 100 ML IV SCH ×2 (09:00→20:42)
[2018-10-12] MEDS: PANTOPRAZOLE 40 MG VIAL IV SCH (09:03)
[2018-10-12] MEDS: LORAZEPAM INJ 2 MG/ML VIAL IV PRN ×2 (13:53→16:50)
[2018-10-12 16:00] VITALS: BP_SYST 124; BP_SYST 145; BP_DIAS 75; BP_DIAS 76
--- NOTE | 2018-10-12 17:48 | NUR ---
RN NOTES O2SAT DROPPING TO 84-86% WITH SIMPLE MASK AT 7LPM. AUDIBLE SECRETIONS NOTED. CALLED RESPIRATORY THERAPIST LOAN, DEEP SUCTIONED DONE. STILL SATTING 86% ON 7LPM VIA SIMPLE MASK. PLACED PATIENT IN NON REBREATHER MASK AT 15LPM. SATTING NOW AT 97%. WILL MONITOR ACCORDINGLY.
--- NOTE | 2018-10-12 18:59 | NUR ---
RN CLOSING NOTES PATIENT IN STABLE CONDITION SON AT BEDSIDE. ALL NEEDS ATTENDED AND PROVIDED. ALL DUE MEDICATIONS GIVEN ORDERED. TURNED AND REPOSITIONED PATIENT NEEDED. KEPT PATIENT SAFE AND COMFORTABLE. BED IN LOW/LOCKED POSITION, SIDERAILS UPX2, HOB ELEVATED. CALL LIGHT IN REACH. WILL CONTINUE TO MONIOTR ACCORDINGLY.
--- NOTE | 2018-10-12 19:10 | NUR ---
MS/RN INITIAL NOTES RECEIVED PT IN BED, OBTUNDED. ON HOSPICE CARE. FAMILY AT BEDSIDE. ON 15L O2 VIA NONREBREATHER MASK SPO2 OF 94% RFA G20 SL INTACT AND PATENT. CONDOM CATH IN PLACED. SAFETY MEASURES IN PLACED. CALL LIGHT WITHIN EASY REACH. WILL CONT TO MONITOR
[2018-10-12 20:00] VITALS: BP 158/79
--- NOTE | 2018-10-12 20:00 | NUR ---
RN NOTES PT'S TEMPT: 100.5, COOLING MEASURES PROVIDED. WILL ADMINISTER ANTIPYRETICS PRN, WILL CONT TO MONITOR
[2018-10-12] MEDS: ACETAMINOPHEN 650 MG/SUPP.RECT RC PRN (22:11)
--- NOTE | 2018-10-12 23:00 | NUR ---
RN NOTES RECHECKED TEMPT=98.1
[2018-10-13] MEDS: MORPHINE SULFATE INJ 4 MG/ML DISP.SYRIN IV PRN ×3 (00:44→23:53)
--- NOTE | 2018-10-13 07:21 | NUR ---
RN NOTES PT RESTING COMFORTABLY. DAUGHTER AT BEDSIDE. COMFORT MEASURES RENDERED. ENDORSED TO AM SHIFT RN FOR RADHA
[2018-10-13 08:00] VITALS: BP_SYST 152; BP_SYST 157; BP_DIAS 80
[2018-10-13] MEDS: PANTOPRAZOLE 40 MG VIAL IV SCH (09:00)
[2018-10-13] MEDS: LEVETIRACETAM (500MG) 500 MG in IV NS 0.9% 100 ML IV SCH ×2 (09:00→21:50)
[2018-10-13] MEDS: ACETAMINOPHEN 650 MG/SUPP.RECT RC PRN ×2 (10:32→17:10)
--- NOTE | 2018-10-13 13:35 | NUR ---
gave Jadon at 0940 due to inablity to find medication from pharmacy. Pharmacy later put medication in the refrigerator. scanner not working.. Addendum: 10/13/18 at 1529 by Sean Womack RN nursing notes gave Jadon at 0940 due to inablity to find medication from pharmacy. Pharmacy later put medication in the refrigerator. scanner not working..
[2018-10-13 16:00] VITALS: BP 140/70
[2018-10-13 20:00] VITALS: BP 175/73
--- NOTE | 2018-10-13 20:00 | NUR ---
DIRECTOR EHS NOTES RECEIVED PATIENT IN BED, RESPIRATION RATE IN THE 30'S, REQUIRE VENTURI MASK WITH 15L , PATIENT UNABLKE OT MAKE NEEDS KNOWN,, FAMILY INVOLVE, ON MONITORING PATIENT OBTUNDED, SKIN WARM TO TOUCH , NON VERBAL, IV SITE INSERT IN LEFT HAND , ,KEPT COMFORTABLE, DISCUSSED PLAN OF CARE, RECEIVED ENDORSEMENT FROM AM RN FOR RADHA. WILL MONITOR.
--- NOTE | 2018-10-13 20:36 | NUR ---
HOSPICE/RN NOTES PATIENT OBSERVE UNABLE TO RELAX, ATIVAN NEEDED TO ADMINISTER.
[2018-10-13] MEDS: LORAZEPAM INJ 2 MG/ML VIAL IV PRN (20:41)
--- NOTE | 2018-10-13 23:05 | NUR ---
pattern chain maker supervisor notes PATIENT OBSERVE RESPIRATIONS/BREATHING AT A RATE OF 33, OXYGEN IN NON BREATHING MASK AT 15 LITER WITH OXYGENATION AT 89%, PULSE RATE AT 114. , SKIN WARM TO TOUCH, MONITORING, FAMILY AT BED SIDE, KEPT COMFORTABLE.
--- NOTE | 2018-10-13 23:47 | NUR ---
PHLEBOTOMY COORDINATOR NOTES PATIENT FOR COMFORT MEASURES OBSERVED MOANING, GRIMACE, TEARS IN EYES, WILL GIVE NEEDED MORPHINE IVP, MONITORING FOR ANY CHANGES
--- NOTE | 2018-10-14 01:44 | NUR ---
ASE MASTER MECHANIC NOTES PATIENT ON OXYGENATION AT 86 TO 88 % AT 15L NON REBREATHER MASK, SKIN WARM TO TOUCH, RESPIRATIONS BET 30-32, MOIST. KEPT COMFORTABLE. WILL MONITOR. HOSPICE NURSE RN FOLLOW UP, FAMILY AT BEDSIDE.
--- NOTE | 2018-10-14 02:01 | NUR ---
FOUNDER & CEO NOTES SHALLOW BREATHING,WITH RESPIRATION AT 40 , SKIN WARM TO TOUCH,MOIST
--- NOTE | 2018-10-14 06:34 | NUR ---
MS/RN NOTES PATIENT IN BED, NON VERBAL EXTENSIVE ASSISTANCE REQUIREF FOR SAFET MONITORNG, CALL LIGHTS WITHIN REACH, BED LOCKED, WILL ENDORSE TO AM RN FOR RADHA.
--- NOTE | 2018-10-14 07:30 | NUR ---
RN NOTES RECEIVED PATIENT IN BED, OBTUNDED, UNABLE TO MAKE NEEDS KNOWN, ON VENTURI MASK WITH 15L SATURATING AT 91% HR AT 117 AT THIS TIME, SKIN WARM TO TOUCH, IVL ON THE L HAND, DAUGHTER AT BEDSIDE, FAMILY DEEPLY INVOLVED IN THE CARE,DISCUSSED PLAN OF CARE, PATIENT KEPT COMFORTABLE AND WARMTH, SAFETY MEASURES OBSERVED AND MAINTAINED. CALL LIGHT PLACED WITHIN REACH, WILL CONTINUE TO MONITOR PATIENT.
[2018-10-14 08:00] VITALS: BP_SYST 150; BP_SYST 152; BP_DIAS 53; BP_DIAS 86
[2018-10-14] MEDS: PANTOPRAZOLE 40 MG VIAL IV SCH (08:58)
[2018-10-14] MEDS: MORPHINE SULFATE INJ 4 MG/ML DISP.SYRIN IV PRN ×3 (09:00→17:12)
[2018-10-14] MEDS: LEVETIRACETAM (500MG) 500 MG in IV NS 0.9% 100 ML IV SCH (09:17)
--- NOTE | 2018-10-14 15:50 | NUR ---
MILO NOTES SPOKE TO ASHLEIGH, (HOSPICE NURSE) UPDATED ON PATIENT'S STATUS. PER HOSPICE NURSE, KEEP GIVING MORPHINE ORDERED. ALSO VERBALIZED THAT HE'LL COME TO SEE CHECK ON THE PATIENT IN A LITTLE LATER.
[2018-10-14] MEDS: LORAZEPAM INJ 2 MG/ML VIAL IV PRN (15:58)
--- NOTE | 2018-10-14 16:10 | NUR ---
RN NOTES ENDORSED PATIENT TO GONSALO RN FOR CONTINUITY OF CARE. PATIENT STILL ON NR MASK AT 15LPM, BREATHING LABORED, RATE AT 31, SATURATION AT 83% AT THIS TIME, HR AT 126BPM. PATIENT WAS JUST GIVEN A DOSE OF PRN ATIVAN. 2 DOSES OF PRN MORPHINE GIVEN THROUGH OUT WHILE PATIENT UNDER MY CARE. PATIENT CLEAN AND COMFORTABLE POSITION, SAFETY MAINTAINED. SRX2, BED LOW AND LOCKED, WOFE AT BED SIDE
[2018-10-14] MEDS ORDERED: MORPHINE SULFATE INJ 4 MG/ML DISP.SYRIN IV PRN (18:00)
[2018-10-14 18:55] VITALS: BP 138/84
--- NOTE | 2018-10-14 19:18 | NUR ---
PATIENT AT 1913 CALLED HOSPICE TO NOTIFY THEM. CALLED DR SEE AT [phone] DOCTOR WAS FAXED A NOTICE OF TIME OF FAMILY AT BEDSIDE. ENDORSED PATIENT TO PILE DRIVING SUPERVISOR NURSE.
--- NOTE | 2018-10-14 19:45 | NUR ---
1944 POST MORTEM CARE DONE. [facility] NOTIFIED OF PATIENT'S C/O LILA, CASE # [id number] OBTAINED.
--- NOTE | 2018-10-14 20:40 | NUR ---
2039 BODY TAKEN TO RUTHIECalin.
--- NOTE | 2018-10-14 21:57 | NUR ---
[facility] notified, no organs acquired, body cleaned, and taken to the morgue. Son was at bedsid.
== END 2018-10-14 22:00 | disposition expired | DRG 44 ==
LOC: HOSPICE1 17:27
PROVIDERS: ADMIT Internal Medicine; ATTEND Internal Medicine
DX: I61.1 Nontraumatic intracerebral hemorrhage in hemisphere, cortical (principal); I21.4 Non-ST elevation (NSTEMI) myocardial infarction; J69.0 Pneumonitis due to inhalation of food and vomit; J15.6 Pneumonia due to other Gram-negative bacteria; I11.0 Hypertensive heart disease with heart failure; G81.91 Hemiplegia, unspecified affecting right dominant side; D59.1 Other autoimmune hemolytic anemias; I50.9 Heart failure, unspecified; D47.2 Monoclonal gammopathy; F03.90 Unspecified dementia, unspecified severity, without behavioral disturbance, psychotic disturbance, mood disturbance, and anxiety; I60.9 Nontraumatic subarachnoid hemorrhage, unspecified; I62.00 Nontraumatic subdural hemorrhage, unspecified; Z51.5 Encounter for palliative care; Z86.73 Personal history of transient ischemic attack (TIA), and cerebral infarction without residual deficits; Z87.891 Personal history of nicotine dependence; N40.0 Benign prostatic hyperplasia without lower urinary tract symptoms; F41.9 Anxiety disorder, unspecified; H57.89 Other specified disorders of eye and adnexa; R47.01 Aphasia; M81.0 Age-related osteoporosis without current pathological fracture; I73.00 Raynaud's syndrome without gangrene; I34.1 Nonrheumatic mitral (valve) prolapse; Z85.72 Personal history of non-Hodgkin lymphomas; Z66 Do not resuscitate
CPT/HCPCS: 31720; A4349; A4606; A6402; C9113; G0378; J1953; J2060; J2270; J7030; Z7610